=== PATIENT | male | born 1955 | race Caucasian/White ===

== ENCOUNTER 2017-06-18 18:14 | Emergency (ER) | payer OTHER ==
[~2017-06-18] VITALS: Ht 172.7 cm; Wt 95.3 kg
[2017-06-18 18:27] VITALS: BP_SYST 130
--- NOTE | 2017-06-18 19:49 | NUR ---
Patient to ER hallway 1 for evaluation. Side rails up. Report given to JOE Isaac.
--- NOTE | 2017-06-18 19:52 | NUR ---
Pt brought by family , A&Ox4, pt states he fell 10 feet from a ladder,pt c/o R hip, R heel , R great toe and L ankle s/p fall, no deformities noted, cap refill <3, skin pink and warm.
--- NOTE | 2017-06-18 20:00 | NUR ---
ER Dr. Rodriguez at bedside examining patient.
[2017-06-18 21:39] VITALS: BP_SYST 140
--- NOTE | 2017-06-18 21:39 | NUR ---
Patient given written and verbal discharge instructions and verbalizes understanding. ER MD discussed with patient the results and treatment provided. Patient in stable condition. ID arm band removed. Rx of Robaxin given. Patient educated on pain management and to follow up with PMD. Pain Scale 0/10. Opportunity for questions provided and answered.
== END 2017-06-18 21:39 | disposition home or self-care (01) ==
LOC: SED 18:14
DX: S93.402A Sprain of unspecified ligament of left ankle, initial encounter (principal); M54.5 Low back pain; M79.671 Pain in right foot; W11.XXXA Fall on and from ladder, initial encounter; Y93.89 Activity, other specified; Y92.89 Other specified places as the place of occurrence of the external cause; Y99.8 Other external cause status
CPT/HCPCS: 73502; 73650-TC; 99284